=== PATIENT | male | born 1975 | race Hispanic/Latino ===

== ENCOUNTER → 2024-09-26 10:23 | Outpatient (REF) | payer OTHER, SELFPAY ==
[2024-09-26 19:15] LABS: Rubella Positive
[2024-09-26 19:16] LABS: Hepatitis B Surface Antibody Negative
[2024-09-28 12:46] LABS: Quantiferon Mitogen minus NIL 9.89 IU/mL; Quantiferon NIL 0.11 IU/mL; Quantiferon Plus TB2 minus NIL 0.33 IU/mL (<=0.34); Quantiferon TB Gold Plus Negative (Negative)
== END ==
LOC: OHS 10:23
PROVIDERS: ATTENDING PHYSICIAN Nurse Practitioner Family
DX: Z23 Encounter for immunization (principal)
CPT/HCPCS: 36415; 86480; 86706; 86735; 86762; 86765; 86787